=== PATIENT | female | born 1950 | race Caucasian/White ===

== ENCOUNTER 2023-08-24 06:45 | Emergency (ER) | payer MEDICARE, OTHER, SELFPAY ==
[2023-08-24 06:47] VITALS: BP 182/143; PULSE 109; RESP 16; TEMP 36.2; O2SAT 96; BMI 28.3
--- NOTE | 2023-08-24 07:15 | CRLHL7_ITS ---
For Patients: As a result of the Century Cures Act, medical imaging exams and procedure reports are released immediately into your electronic medical record. You may view this report before your referring provider. If you have questions, please contact your health care provider. Indication: Shortness of breath Technique: Chest 2 views Comparison: None Findings/Impression: Cardiovascular and mediastinum: Normal heart size with mild atherosclerotic calcification. Lungs and pleural spaces: No pleural effusion or pneumothorax. Discoid atelectasis right lung base. Bones and soft tissues: No significant findings. Dictated by Benedict Frazier MD @ 08/24/2023 7:39:43 AM (Electronically Signed)
--- NOTE | 2023-08-24 07:15 | CRLHL7_ITS ---
For Patients: As a result of the Century Cures Act, medical imaging exams and procedure reports are released immediately into your electronic medical record. You may view this report before your referring provider. If you have questions, please contact your health care provider. INDICATION: dyspnea, FB sensation TECHNIQUE: Soft tissue neck 2 view. COMPARISON: None.. FINDINGS: The airway is patent. Epiglottis is normal. Mild prominence of the retropharyngeal soft tissues which is favored to relate to degree of neck flexion. The visualized cervical spine demonstrates straightening of expected cervical lordosis and moderate spondylosis. IMPRESSION: Mild prominence of the retropharyngeal soft tissues which is favored to relate to degree of neck flexion. If there is further clinical concern consider cross-sectional imaging to further evaluate. Dictated by Calixto Herrera MD @ 08/24/2023 8:09:50 AM (Electronically Signed)
--- NOTE | 2023-08-24 07:49 | ED_ITS ---
HPI - General Adult General Chief complaint: Difficulty Swallowing Stated complaint: trouble breathing/swallowing Time Seen by Provider: 08/24/23 06:51 Source: patient and family Mode of arrival: ambulatory Limitations: no limitations History of Present Illness HPI narrative: 72-year-old female with known prior history of eosinophilic esophagitis and prior stricture with dilation this past spring presents to the emergency department with a feeling of subjective tightness in the lower throat. This is been gradually progressive over the last several days to weeks but is not nearly as severe as it was the past spring. Apparently the stricture was so bad in the spring that her actually had to do the Heimlich maneuver a couple of times on her to loosen food impactions. She does not currently feel like there is a food impaction. Her concern for coming to the emergency room is that when she lays down she feels like she cannot breathe. It feels like a mechanical type obstruction like she cannot move air in and out. When she sits up her symptoms improved markedly. She does have silent acid reflux and reports excellent compliance with her proton pump inhibitor and her famotidine. She has not missed any doses of this. There is no new trauma or injury. She does have a mild URI but no obvious productive cough. Certainly no nausea, vomiting, hemoptysis. There has been no bloody stools. She has no abdominal pain. She did not try any interventions at home prior to coming to the ED. Her is a retired family physician. She did wake him early this morning and reported her symptoms. He can confirm that she was not exhibiting any signs of visible respiratory distress. She is currently asymptomatic sitting up talking in full sentences for me. She has no history of DVT or PE denies any cardiac or exertional type symptoms. Past medical history notable for hypertension, hyperlipidemia. She is on supplemental topical estrogen. Notable for the esophageal type complaints as above. ROS is notable for the generalized and GI symptoms as above. Otherwise denies times 12 systems. Related Data Home Medications Medication Instructions Recorded Confirmed atorvastatin 10 mg tablet 10 mg PO DAILY 08/24/23 08/24/23 estradiol 0.05 mg/24 hr semiweekly 1 patch transdermal 2XW 08/24/23 08/24/23 transdermal patch famotidine 20 mg tablet 20 mg PO BID 08/24/23 08/24/23 hydralazine 25 mg tablet 25 mg PO 3XD 08/24/23 08/24/23 irbesartan 300 mg tablet 300 mg PO DAILY 08/24/23 08/24/23 omeprazole 40 mg capsule,delayed 40 mg PO DAILY 08/24/23 08/24/23 release Previous Rx's Medication Instructions Recorded amoxicillin 500 mg-potassium 1 tab PO BID #14 tabs 08/24/23 clavulanate 125 mg tablet (Augmentin) prednisone 20 mg tablet 20 mg PO BID #10 tabs 08/24/23 Allergies Allergy/AdvReac Type Severity Reaction Status Date / Time Sulfa (Sulfonamide Allergy Hives Verified 08/24/23 11:57 Antibiotics) IVP dyes Allergy Hives Uncoded 08/24/23 11:57 PFSH [facility] Medical History Health care directive on file ?Z78.9 - Other specified health status (ICD-10) Social History Smoking Status: Never smoker Do you use any of these nicotine containing products: None How often do you have a drink containing alcohol: never AUDIT-C Alcohol total score: 0 Non-prescribed substance use: denies use Exam Const: Vital Signs, click to edit/add: Vital Signs - 24 hr 08/24/23 06:47 Temperature 97.2 F L Pulse Rate [Pulse Oximeter] 109 H Respiratory Rate 16 Blood Pressure [Ri ght Upper Arm] 182/143 H Pulse Oximetry 96 Oxygen Delivery Me thod Room Air Documenting provider has reviewed patient's vital signs: yes Common normals: no apparent distress General appearance: cooperative and comfortable Other: Good historian. No visible respiratory distress. Is able to swallow her own saliva. HENMT: Common normals: normocephalic Head and scalp: normocephalic Face and sinus: normal facial exam Mouth: oral and palatal mucosa normal Throat: posterior oropharynx normal Eye: Common normals: conjunctivae normal General eye: normal appearance of both eyes Conjunctiva: conjunctiva(e) normal Neck & C-Spine: Common normals: full ROM, no lymphadenopathy and supple General: normal visual inspection Resp: Common normals: normal respiratory effort, no use of accessory muscles and clear to auscultation bilaterally Effort & inspection: able to speak in complete sentences Auscultation: clear to auscultation bilaterally Cardio: Common normals: regular rate, regular rhythm, S1 normal heart sound, S2 normal heart sound and no murmurs Rate: regular rate Rhythm: regular rhythm Heart sounds: S1 normal and S2 normal GI: Common normals: Normal to inspection, nondistended, normoactive bowel sounds present, soft to palpation, non-tender, no hepatosplenomegaly and no masses Palpation: soft and no hepatosplenomegaly Extremity: Common normals: normal to inspection, normal capillary refill and no pedal edema Psych: Activity/motor behavior: appropriate eye contact Insight: insight good Judgement: judgment good Skin: Common normals: no rashes or lesions noted General skin exam: no ra shes or lesions noted Course Course ED Course: Subjective shortness of breath, mechanical sound Ng in nature. Low risk for pulmonary embolism but I am curious with her tachycardia. Most likely she has esophageal symptoms or potentially recurrent stricture. She does not give a history consistent with a foreign body aspiration but this certainly is possible. I have recommended we start with a basic neck and chest x-ray and some basic labs to look for pulmonary embolism, infection, electrolyte abnormali ties and other basic workup as well as an EKG. She was agreeable to this. I have given a call for General surgery team. Unfortunately, we are not doing endoscopies today. The provider that is doing them tomorrow is not likely an ideal choice due to the fact that they are not typically familiar with doing dilation procedures and based on this patient's history, she is pretty likely to require dilation. Because of this, I spoke with our supervisor continuous weld pipe mill, Dr. Abdullahi. He is going to review her chart when he gets to clinic as he was driving at the time of our conversation. He is thinking he probably does need a repeat endoscopy based on the description but will get back to us. We will await the medical workup as described above. I will be handing care of this patient over to my day shift partner. She is not experiencing any signs of respiratory distress at this time. Vital Signs Vital signs: Initial Vital Signs Temperature 97.2 F L 08/24/23 06:47 Temperature Source Temporal Artery Scan 08/24/23 06:47 Pulse Rate 109 H 08/24/23 06:47 Respiratory Rate 16 08/24/23 06:47 Blood Pressure 182/143 H 08/24/23 06:47 Blood Pressure Mean 156 H 08/24/23 06:47 Blood Pressure Position Sitting 08/24/23 06:47 Pulse Oximetry 96 08/24/23 06:47 Oxygen Delivery Method Room Air 08/24/23 06:47 Vital Signs Temperature 97.2 F L 08/24/23 06:47 Pulse Rate 109 H 08/24/23 06:47 Respiratory Rate 16 08/24/23 06:47 Blood Pressure 182/143 H 08/24/23 06:47 Pulse Oximetry 96 08/24/23 06:47 Oxygen Delivery Method Room Air 08/24/23 06:47 Temperature 97.7 F 08/24/23 11:55 Pulse Rate 92 08/24/23 11:55 Respiratory Rate 18 08/24/23 11:55 Blood Pressure 172/86 H 08/24/23 11:55 Pulse Oximetry 95 08/24/23 11:55 Oxygen Delivery Method Room Air 08/24/23 11:55 Medications Administered Medications: Discontinued Medications Generic Name Dose Route Start Last Admin Trade Name Freq PRN Reason Stop Dose Admin Diphenhydramine HCl 50 mg 08/24/23 09:21 08/24/23 09:48 Diphenhydramine 50 Mg/Ml Inj IVP 08/24/23 09:22 50 mg ONCE ONE Administration Hydrocortisone Sodium Succinate 200 mg 08/24/23 09:21 08/24/23 09:49 Hydrocortisone Sod Succinate 50 Mg/Ml Inj IVP 08/24/23 09:22 200 mg ONCE ONE Administration Medical Decision Making Medical Records Medical records reviewed: Yes I reviewed the patient's medical records Lab Data Lab results reviewed: Yes I reviewed the patient's lab results Labs: Lab Results 08/24/23 08/24/23 Range/Units 06:58 08:30 WBC 15.10 H (4.50-11.00) K/uL RBC 5.01 (4.00-5.20) m/uL Hgb 15.0 (12.0-16.0) gm/dL Hct 46.6 (33.0-51.0) % MCV 93 (80-100) fL MCH 30 (26-34) pg MCHC 32 (32-36) gm/dL RDW Coeff of [place]aya 13.3 (11.5-15.5) % Plt Count 331 (140-440) K/uL Neut % (Auto) 81.3 H (42.0-72.0) % Lymph % (Auto) 11.7 L (20-44) % Hubbard % (Auto) 6.4 (0.0-11.0) % Eos % (Auto) 0.1 (0.0-7.0) % Baso % (Auto) 0.3 (0.0-3.0) % Neut # (Auto) 12.30 H (1.7-7.0) K/uL Lymph # (Auto) 1.80 (0.90-2.90) K/uL Hubbard # (Auto) 1.00 H (0.00-0.90) K/UL Eos # (Auto) 0.00 (0.00-0.50) K/uL Baso # (Auto) 0.00 (0.00-0.30) K/uL Abs Immat Gran (auto) 0.00 (0.00-0.30) K/uL Imm/Tot Granulo (auto) 0.2 % D-Dimer Quant (PE/DVT) 0.29 (0.00-0.50) ug/ml Sodium 134 L (135-149) mmol/L Potassium 4.4 (3.6-5.1) mmol/L Chloride 106 (96-114) mmol/L Carbon Dioxide 27 (20-32) mmol/L Anion Gap 1 L (7-15) mEq/L BUN 16 (7-30) mg/dL Creatinine 0.8 (0.5-1.5) mg/dL Estimated Creat Clear 42.07 Estimated GFR 78 ml/min Glucose 121 H (60-115) mg/dL Calcium 9.1 (8.4-10.6) mg/dL Troponin I 0.01 (0.01-0.04) ng/mL C-Reactive Protein 1.5 H (0.5-1.0) mg/dL SARS-CoV-2 (PCR) Negative SARS-CoV-2 (Negative) Influenza Type A (PCR) Negative PCR FLU A (Negative) Influenza Type B (PCR) Negative PCR FLU B (Negative) RSV (PCR) Negative PCR RSV (Negative) Imaging Data Chest x-ray: Attestation: I have reviewed the pertinent imaging results. My impression: Normal chest x-ray Radiologist's impression: IMPRESSION: No evidence of acute cardiopulmonary process. Neck x-ray: Attestation: I have reviewed the pertinent imaging results. My impression: No obvious radiopaque foreign body, but uncertain if any signs of soft tissue obstruction. Awaiting radiologist interpretation Discharge Plan Discharge Clinical Impression: Eosinophilic esophagitis, Thyroid fullness, Incidental lung nodule, Mild shortness of breath Patient Disposition: Home w/ Parent or Adult Condition: Improved Instructions: Esophagitis (ED) Additional Instructions: Light activity, fluids, steroid and antibiotics prescribed. You need to follow- up discussed that her doctor regarding recheck on your lung nodule and thyroid needs an ultrasound. This can be done as an outpatient. Return to ED if problems or concerns. Follow up appointment is scheduled at the [facility] [place] on [place] with a 3pm appointment time. Please arrive at 2:50pm to check in. If you have any questions or need to reschedule, please call [phone]. [facility] [place] [address] [place] [address] Activity Level: No Restrictions Discharge Diet: Regular Prescriptions: New amoxicillin-pot clavulanate [Augmentin] 500-125 mg tablet 1 tab PO BID Qty: 14 0RF prednisone 20 mg tablet 20 mg PO BID Qty: 10 0RF No Action atorvastatin 10 mg tablet 10 mg PO DAILY hydralazine 25 mg tablet 25 mg PO 3XD estradiol 0.05 mg/24 hr patch semiweekly 1 patch transdermal 2XW omeprazole 40 mg capsule,delayed release(DR/EC) 40 mg PO DAILY famotidine 20 mg tablet 20 mg PO BID irbesartan 300 mg tablet 300 mg PO DAILY Follow Up/Referrals: Shin Abdullahi MD [Staff Physician] - 7 Days (Per Dr. Abdullahi, discussed from ED 08/24/2023 0800) Cassie Venegas DO [Primary Care Provider] - Stand Alone Forms: [employer] Info Instructions
[2023-08-24 07:59] LABS: PCR FLU A Negative PCR FLU A (Negative); PCR FLU B Negative PCR FLU B (Negative); PCR RSV Negative PCR RSV (Negative)
[2023-08-24 08:22] LABS: SARS PCR* Negative SARS-CoV-2 (Negative)
[2023-08-24 08:39] VITALS: BP 163/83; PULSE 85; RESP 18; O2SAT 95
--- NOTE | 2023-08-24 09:00 | CRLHL7_ITS ---
For Patients: As a result of the Century Cures Act, medical imaging exams and procedure reports are released immediately into your electronic medical record. You may view this report before your referring provider. If you have questions, please contact your health care provider. INDICATION: Short of breath, difficulty swallowing, feels like something stuck COMPARISON: Chest and neck soft tissue radiographs from the same day TECHNIQUE: CT of the neck with contrast. Multiplanar axial, coronal, and sagittal reformats were reconstructed. Intravenous contrast: 79 mL of Isovue 370. FINDINGS: Lymph nodes: Normal. Parotid and submandibular glands: Normal. Thyroid gland: Multinodular thyroid. The right thyroid lobe is mildly enlarged. No intra mediastinal/intrathoracic extension. Tonsils: Normal. Airway: Normal. Not deviated or narrowed. Normal epiglottis. Air-fluid level in the left piriform sinus. Parapharyngeal spaces: Normal. Paranasal sinus: Normal. Soft tissues: Normal. No swelling. No foreign body. Arteries: Mild atherosclerosis. No arterial aneurysm, dissection, or thrombus. Veins: No deep vein thrombosis. Lung apices: 4 mm left upper lobe nodule. Bones: No fractures. No focal bone lesions. Normal for age. Upper esophagus: Normal. No distention with fluid, debris, or ingested material. Included intracranial contents, orbits and mastoids: Normal. IMPRESSION: 1. Very trace amount of fluid layering in the left piriform sinus. No airway or esophageal foreign body. 2. Multinodular thyroid with enlarged right thyroid lobe. Recommend ultrasound on a nonemergent basis for further characterization. 3. There is a 4 mm nodule in the left upper lobe. If the patient is low risk, no specific follow-up is recommended. If the patient is high risk for primary pulmonary malignancy, consider follow-up CT in 12 months. Please note that all CT scans at this facility use dose modulation, iterative reconstruction, and/or weight-based dosing when appropriate to reduce radiation dose to as low as reasonably achievable. Dictated by Connie Rg MD @ 08/24/2023 12:01:58 PM (Electronically Signed)
--- NOTE | 2023-08-24 09:04 | ED.GENADULT ---
HPI - General Adult General Chief complaint: Difficulty Swallowing Stated complaint: trouble breathing/swallowing Time Seen by Provider: 08/24/23 06:51 Source: patient and family Mode of arrival: ambulatory Limitations: no limitations Related Data Home Medications Medication Instructions Recorded Confirmed atorvastatin 10 mg tablet 10 mg PO DAILY 08/24/23 08/24/23 estradiol 0.05 mg/24 hr semiweekly 1 patch transdermal 2XW 08/24/23 08/24/23 transdermal patch famotidine 20 mg tablet 20 mg PO BID 08/24/23 08/24/23 hydralazine 25 mg tablet 25 mg PO 3XD 08/24/23 08/24/23 irbesartan 300 mg tablet 300 mg PO DAILY 08/24/23 08/24/23 omeprazole 40 mg capsule,delayed 40 mg PO DAILY 08/24/23 08/24/23 release Previous Rx's Medication Instructions Recorded amoxicillin 500 mg-potassium 1 tab PO BID #14 tabs 08/24/23 clavulanate 125 mg tablet (Augmentin) prednisone 20 mg tablet 20 mg PO BID #10 tabs 08/24/23 Allergies Allergy/AdvReac Type Severity Reaction Status Date / Time Sulfa (Sulfonamide Allergy Hives Verified 08/24/23 11:57 Antibiotics) IVP dyes Allergy Hives Uncoded 08/24/23 11:57 PFSH PFSH Medical History Health care directive on file ?Z78.9 - Other specified health status (ICD-10) Social History Smoking Status: Never smoker Do you use any of these nicotine containing products: None How often do you have a drink containing alcohol: never AUDIT-C Alcohol total score: 0 Non-prescribed substance use: denies use Exam Const: Vital Signs, click to edit/add: Vital Signs - 24 hr 08/24/23 06:47 08/24/23 08:39 08/24/23 10:48 Temperature 97.2 F L 99 F Pulse Rate [Pulse Oximeter] 109 H 85 88 Respiratory Rate 16 18 20 Blood Pressure [Ri ght Upper Arm] 182/143 H 163/83 H 178/92 H Pulse Oximetry 96 95 96 Oxygen Delivery Me thod Room Air Room Air 08/24/23 11:55 Temperature 97.7 F Pulse Rate [Pulse Oximeter] 92 Respiratory Rate 18 Blood Pressure [Ri ght Upper Arm] 172/86 H Pulse Oximetry 95 Oxygen Delivery Me thod Room Air Course Vital Signs Vital signs: Initial Vital Signs Temperature 97.2 F L 08/24/23 06:47 Temperature Source Temporal Artery Scan 08/24/23 06:47 Pulse Rate 109 H 08/24/23 06:47 Respiratory Rate 16 08/24/23 06:47 Blood Pressure 182/143 H 08/24/23 06:47 Blood Pressure Mean 156 H 08/24/23 06:47 Blood Pressure Position Sitting 08/24/23 06:47 Pulse Oximetry 96 08/24/23 06:47 Oxygen Delivery Method Room Air 08/24/23 06:47 Vital Signs Temperature 97.2 F L 08/24/23 06:47 Pulse Rate 109 H 08/24/23 06:47 Respiratory Rate 16 08/24/23 06:47 Blood Pressure 182/143 H 08/24/23 06:47 Pulse Oximetry 96 08/24/23 06:47 Oxygen Delivery Method Room Air 08/24/23 06:47 Temperature 97.7 F 08/24/23 11:55 Pulse Rate 92 08/24/23 11:55 Respiratory Rate 18 08/24/23 11:55 Blood Pressure 172/86 H 08/24/23 11:55 Pulse Oximetry 95 08/24/23 11:55 Oxygen Delivery Method Room Air 08/24/23 11:55 Medications Administered Medications: Discontinued Medications Generic Name Dose Route Start Last Admin Trade Name Freq PRN Reason Stop Dose Admin Diphenhydramine HCl 50 mg 08/24/23 09:21 08/24/23 09:48 Diphenhydramine 50 Mg/Ml Inj IVP 08/24/23 09:22 50 mg ONCE ONE Administration Hydrocortisone Sodium Succinate 200 mg 08/24/23 09:21 08/24/23 09:49 Hydrocortisone Sod Succinate 50 Mg/Ml Inj IVP 08/24/23 09:22 200 mg ONCE ONE Administration Medical Decision Making [facility] Narrative Medical decision making narrative: Patient is a 72-year-old female that gets episodic shortness of breath this morning last night she has had a recent upper respiratory infection, she is negative for all her viral studies, the patient does have some mild fullness on her soft tissue neck x-ray. Will get a CT scan of her neck for completeness to make sure there is no retropharyngeal abscess or other issue. Her viral studies are negative as mention her EKG shows normal sinus rhythm right atrial enlargement nonspecific ST changes really no acute changes. For the laboratories are pending. Discussed with Dr. Sanchez any wishes to see her in follow-up. Given her in a felt like esophagitis. And may need repeat EGD. Addendum 12 noon: The patient's soft tissue neck CT is pending. Her plain film showed some fullness in her retropharyngeal air which could be due to just simply angulation but given she had a positional change in breathing issue, I think it was suggs to check a CT scan if this is reassuring I think will put her on antibiotics per ENT is recommendation and steroid medicine. She got hydrocortisone ready for her pretreatment for the CT scan with contrast. Her EKG looks reassuring and her other lab studies also look reassuring in the form of a CRP that is only 1.5 troponin that is negative, her white count is elevated 15,100 but she does have a mild upper respiratory infection hemoglobin is 15 D-dimer is negative, ER profile is largely unremarkable, she is negative for the viral studies. Recommend follow-up with Dr. Olya cole as his recommendation for this he Unasyn felt like esophagitis and she may need repeat valid dilation. Treat the upper respiratory infection and breathin issue with Augmentin and the steroid. Follow-up with Dr. Sanchez will be set up. Follow up with primary care in the next few days per their discretion. Return to ED sooner problems or concerns. Lab Data Labs: Lab Results 08/24/23 08/24/23 Range/Units 06:58 08:30 WBC 15.10 H (4.50-11.00) K/uL RBC 5.01 (4.00-5.20) m/uL Hgb 15.0 (12.0-16.0) gm/dL Hct 46.6 (33.0-51.0) % MCV 93 (80-100) fL MCH 30 (26-34) pg MCHC 32 (32-36) gm/dL RDW Coeff of Sumaya 13.3 (11.5-15.5) % Plt Count 331 (140-440) K/uL Neut % (Auto) 81.3 H (42.0-72.0) % Lymph % (Auto) 11.7 L (20-44) % [place] % (Auto) 6.4 (0.0-11.0) % Eos % (Auto) 0.1 (0.0-7.0) % Baso % (Auto) 0.3 (0.0-3.0) % Neut # (Auto) 12.30 H (1.7-7.0) K/uL Lymph # (Auto) 1.80 (0.90-2.90) K/uL [place] # (Auto) 1.00 H (0.00-0.90) K/UL Eos # (Auto) 0.00 (0.00-0.50) K/uL Baso # (Auto) 0.00 (0.00-0.30) K/uL Abs Immat Gran (auto) 0.00 (0.00-0.30) K/uL Imm/Tot Granulo (auto) 0.2 % D-Dimer Quant (PE/DVT) 0.29 (0.00-0.50) ug/ml Sodium 134 L (135-149) mmol/L Potassium 4.4 (3.6-5.1) mmol/L Chloride 106 (96-114) mmol/L Carbon Dioxide 27 (20-32) mmol/L Anion Gap 1 L (7-15) mEq/L BUN 16 (7-30) mg/dL Creatinine 0.8 (0.5-1.5) mg/dL Estimated Creat Clear 42.07 Estimated GFR 78 ml/min Glucose 121 H (60-115) mg/dL Calcium 9.1 (8.4-10.6) mg/dL Troponin I 0.01 (0.01-0.04) ng/mL C-Reactive Protein 1.5 H (0.5-1.0) mg/dL SARS-CoV-2 (PCR) Negative SARS-CoV-2 (Negative) Influenza Type A (PCR) Negative PCR FLU A (Negative) Influenza Type B (PCR) Negative PCR FLU B (Negative) RSV (PCR) Negative PCR RSV (Negative) Discharge Plan Discharge Clinical Impression: Eosinophilic esophagitis, Thyroid fullness, Incidental lung nodule, Mild shortness of breath Patient Disposition: Home w/ Parent or Adult Condition: Improved Instructions: Esophagitis (ED) Additional Instructions: Light activity, fluids, steroid and antibiotics prescribed. You need to follow-up discussed that her doctor regarding recheck on your lung nodule and thyroid needs an ultrasound. This can be done as an outpatient. Return to ED if problems or concerns. Follow up appointment is scheduled at the [facility] [place] on 09/08 with a 3pm appointment time. Please arrive at 2:50pm to check in. If you have any questions or need to reschedule, please call [phone]. [facility] [place] [address] [place] [address] Activity Level: No Restrictions Discharge Diet: Regular Prescriptions: New amoxicillin-pot clavulanate [Augmentin] 500-125 mg tablet 1 tab PO BID Qty: 14 0RF prednisone 20 mg tablet 20 mg PO BID Qty: 10 0RF No Action atorvastatin 10 mg tablet 10 mg PO DAILY hydralazine 25 mg tablet 25 mg PO 3XD estradiol 0.05 mg/24 hr patch semiweekly 1 patch transdermal 2XW omeprazole 40 mg capsule,delayed release(DR/EC) 40 mg PO DAILY famotidine 20 mg tablet 20 mg PO BID irbesartan 300 mg tablet 300 mg PO DAILY Follow Up/Referrals: Shin Abdullahi MD [Staff Physician] - 7 Days (Per Dr. Abdullahi, discussed from ED 08/24/2023 0800) Cassie Venegas DO [Primary Care Provider] - Stand Alone Forms: [employer] Info Instructions
[2023-08-24 09:15] LABS: Troponin I* 0.01 ng/mL (0.01-0.04)
[2023-08-24] MEDS: diphenhydrAMINE 50 MG/ML inj IVP (09:48)
[2023-08-24] MEDS: HYDROCORTISONE SOD SUCCINATE 50 MG/ML inj 200 MG IVP (09:49)
[2023-08-24 10:32] LABS: Chloride* 106 mmol/L (96-114); Potassium* 4.4 mmol/L (3.6-5.1); Sodium* 134 mmol/L (135-149)
[2023-08-24 10:34] LABS: Basophils Percent Auto 0.3 % (0.0-3.0); Eosinophils Percent Auto 0.1 % (0.0-7.0); Hematocrit 46.6 % (33.0-51.0); Immature Granulocytes Pct Auto 0.2 %; Lymphocytes Percent Auto 11.7 % (20-44); Mean Corpuscular HGB Conc 32 gm/dL (32-36); Mean Corpuscular Hemoglobin 30 pg (26-34); Mean Corpuscular Volume 93 fL (80-100); Monocytes Percent Auto 6.4 % (0.0-11.0); Neutrophils Percent Auto 81.3 % (42.0-72.0); Platelet Count* 331 K/uL (140-440); RDW Coefficient of Variation % 13.3 % (11.5-15.5); Red Blood Count 5.01 m/uL (4.00-5.20)
[2023-08-24 10:35] LABS: Creatinine* 0.8 mg/dL (0.5-1.5); Est. Creatinine Clearance* 42.07; Estimated Glomerular Filt Rate 78 ml/min
[2023-08-24 10:36] LABS: Anion Gap 1 mEq/L (7-15); Blood Urea Nitrogen* 16 mg/dL (7-30); Calcium* 9.1 mg/dL (8.4-10.6); Carbon Dioxide* 27 mmol/L (20-32); Glucose* 121 mg/dL (60-115)
[2023-08-24 10:37] LABS: D Dimer Quantitative* 0.29 ug/ml (0.00-0.50); Slide Review Reflex No
[2023-08-24 10:39] LABS: C Reactive Protein* 1.5 mg/dL (0.5-1.0)
[2023-08-24 10:48] VITALS: BP 178/92; PULSE 88; RESP 20; TEMP 37.2; O2SAT 96
[2023-08-24 11:55] VITALS: BP 172/86; PULSE 92; RESP 18; TEMP 36.5; O2SAT 95
== END 2023-08-24 12:19 | disposition home or self-care (01) ==
PROVIDERS: Family Medicine; Emergency Provider Family Medicine; PCP Family Medicine
DX: K20.0 Eosinophilic esophagitis (principal); R91.1 Solitary pulmonary nodule
CPT/HCPCS: 36415; 70360; 70491; 71046; 80048; 84484; 85025; 85379; 86140; 87631; 93005; 96374; 96376; 99284; 99285; J1200; J1720; Q9967

== ENCOUNTER 2024-07-20 08:37 | Emergency (ER) | payer MEDICARE, OTHER, SELFPAY ==
[2024-07-20] VITALS (11 sets, daily range): BP systolic 148–161; BP diastolic 73–77; PULSE 88–105; RESP 16–20; TEMP 36.2; O2SAT 93–96; BMI 29.2
[2024-07-20 09:22] LABS: Basophils Percent Auto 0.3 % (0.0-3.0); Eosinophils Percent Auto 0.2 % (0.0-7.0); Hematocrit 42.1 % (33.0-51.0); Hemoglobin* 13.8 gm/dL (12.0-16.0); Immature Granulocytes Pct Auto 0.2 %; Lymphocytes Percent Auto 12.9 % (20-44); Mean Corpuscular HGB Conc 33 gm/dL (32-36); Mean Corpuscular Hemoglobin 30 pg (26-34); Mean Corpuscular Volume 91 fL (80-100); Monocytes Percent Auto 9.9 % (0.0-11.0); Neutrophils Percent Auto 76.5 % (42.0-72.0); Platelet Count* 274 K/uL (140-440); RDW Coefficient of Variation % 13.6 % (11.5-15.5); Red Blood Count 4.61 m/uL (4.00-5.20); White Blood Count* 11.58 K/uL (4.50-11.00)
[2024-07-20 09:28] LABS: Slide Review Reflex No
[2024-07-20 09:35] LABS: PCR FLU A Negative PCR FLU A (Negative); PCR FLU B Negative PCR FLU B (Negative); PCR RSV Negative PCR RSV (Negative); SARS PCR* Negative SARS-CoV-2 (Negative)
--- NOTE | 2024-07-20 09:38 | ED_ITS ---
HPI - General Adult General Chief complaint: Chest Pain Stated complaint: Chest pain short of breath cough, allergy concerns Time Seen by Provider: 07/20/24 09:37 History of Present Illness HPI narrative: Pt reports she ate some radish at 1700 last night. Around 1745, began to have some chest pain, lip/face /jaw discomfort /pain, dry cough. Pt had a puff of 's cortisone inhaler and took a Zyrtec around 2130. This AM, facial /jaw pain has resolved, but chest pain remains, about 8/10 pain, worse with inspiration. 73-year-old woman presenting to the emergency department with concern of chest pain that seems to have been present shortly after eating a rash yesterday evening. Initially began to feel some chest tightness and discomfort around her jaw and lips. Slight cough. Used her 's steroid inhaler and took a Zyrtec. Still with some discomfort in her jaw this morning and a lightly pleuritic chest pressure has remained. Concern primarily by spouse of potential pulmonary embolus. No difficulty swallowing. Not exactly short of breath. Related Data Home Medications ?Medication ?Instructions ?Recorded ?Confirmed atorvastatin 10 mg tablet 10 mg PO DAILY 08/24/23 08/24/23 estradiol 0.05 mg/24 hr semiweekly 1 patch transdermal 2XW 08/24/23 08/24/23 transdermal patch famotidine 20 mg tablet 20 mg PO BID 08/24/23 08/24/23 hydralazine 25 mg tablet 25 mg PO 3XD 08/24/23 08/24/23 irbesartan 300 mg tablet 300 mg PO DAILY 08/24/23 08/24/23 omeprazole 40 mg capsule,delayed 40 mg PO DAILY 08/24/23 08/24/23 release Previous Rx's ?Medication ?Instructions ?Recorded amoxicillin 500 mg-potassium 1 tab PO BID #14 tabs 08/24/23 clavulanate 125 mg tablet (Augmentin) prednisone 20 mg tablet 20 mg PO BID #10 tabs 08/24/23 prednisone 20 mg tablet 20 mg PO BID #6 tabs 07/20/24 Allergies Allergy/AdvReac Type Severity Reaction Status Date / Time Sulfa (Sulfonamide Allergy Hives Verified 08/24/23 11:57 Antibiotics) IVP dyes Allergy Hives Uncoded 08/24/23 11:57 Review of Systems Status of ROS: Reports: 6 or more systems reviewed and unremarkable except as noted in History and below [facility] Medical History Health care directive on file ?Z78.9 - Other specified health status (ICD-10) Social History Smoking Status: Never smoker Do you use any of these nicotine containing products: None How often do you have a drink containing alcohol: never AUDIT-C Alcohol total score: 0 Non-prescribed substance use: denies use Exam Narrative: Exam Narrative: Pleasant. NAD. Neck is supple. No stridor. Oropharynx unremarkable. I do not appreciate any swelling about face or lips. Lungs generally clear with clearing crepitus in bilateral bases. Slightly uncomfortable to palpation over the lower mid chest wall anteriorly. Abdomen is soft nontender. Extremities are well perfused without edema. Skin without rash. Heart in elevated rate and regular rhythm without murmur or gallop. Const: Vital Signs, click to edit/add: Vital Signs - 24 hr 07/20/24 08:45 07/20/24 08:59 07/20/24 09:00 Temperature 97.2 F L Pulse Rate 96 Pulse Rate [Pulse Oximeter] 105 H Respiratory Rate 16 Blood Pressure 148/74 H Blood Pressure [Ri ght Upper Arm] 161/73 H Pulse Oximetry 95 95 94 Oxygen Delivery Me thod Room Air 07/20/24 09:00 07/20/24 09:15 07/20/24 09:30 Temperature Pulse Rate 96 94 91 Pulse Rate [Pulse Oximeter] Respiratory Rate Blood Pressure Blood Pressure [Ri ght Upper Arm] Pulse Oximetry 95 93 94 Oxygen Delivery Me thod 07/20/24 09:34 07/20/24 09:45 07/20/24 10:00 Temperature Pulse Rate 90 89 89 Pulse Rate [Pulse Oximeter] Respiratory Rate Blood Pressure Blood Pressure [Ri ght Upper Arm] Pulse Oximetry 94 95 94 Oxygen Delivery Me thod 07/20/24 10:05 07/20/24 10:15 07/20/24 10:19 Temperature Pulse Rate 89 88 88 Pulse Rate [Pulse Oximeter] Respiratory Rate 20 Blood Pressure 154/77 H Blood Pressure [Ri ght Upper Arm] Pulse Oximetry 94 94 96 Oxygen Delivery Me thod Course Vital Signs Vital signs: Initial Vital Signs Temperature 97.2 F L 07/20/24 08:45 Temperature Source Temporal Artery Scan 07/20/24 08:45 Pulse Rate 105 H 07/20/24 08:45 Respiratory Rate 16 07/20/24 08:45 Blood Pressure 161/73 H 07/20/24 08:45 Blood Pressure Mean 102 07/20/24 08:45 Blood Pressure Position Supine 07/20/24 08:45 Pulse Oximetry 95 07/20/24 08:45 Oxygen Delivery Method Room Air 07/20/24 08:45 Vital Signs Temperature 97.2 F L 07/20/24 08:45 Pulse Rate 105 H 07/20/24 08:45 Respiratory Rate 16 07/20/24 08:45 Blood Pressure 161/73 H 07/20/24 08:45 Pulse Oximetry 95 07/20/24 08:45 Oxygen Delivery Method Room Air 07/20/24 08:45 Temperature 97.2 F L 07/20/24 08:45 Pulse Rate 88 07/20/24 10:19 Respiratory Rate 20 07/20/24 10:19 Blood Pressure 154/77 H 07/20/24 10:19 Pulse Oximetry 96 07/20/24 10:19 Oxygen Delivery Method Room Air 07/20/24 08:45 Medications Administered Medications: Discontinued Medications Generic Name Dose Route Start Last Admin Trade Name Freq PRN Reason Stop Dose Admin Methylprednisolone Sodium Succinate 80 mg 07/20/24 09:46 07/20/24 10:15 Methylprednisolone Sod Succ 62.5 Mg/Ml (125) IVP 07/20/24 09:47 80 mg ONCE ONE Administration Medical Decision Making MDM Narrative Medical decision making narrative: This certainly could have been allergic reaction or onset of some viral costochondritis. Maybe some residual inflammation from apparent allergic reaction. Some component of anxiety? I doubt this is a cardiogenic pain. Pneumothorax or pulmonary embolus I suppose is in differential but I think un likely. Would screen with labs for the latter. Check also for COVID. Mildly elevated white count. Unsure if this is infectious or inflammatory. I think the crepitus that I was hearing that was clearing was more related to some atelectasis of the lung secondary to poor pulmonary expansion due to discomfort Labs are reassuring. Normal D-dimer. Chest discomfort likely inflammatory or possibly residual allergic. Discussed potential benefit of Solu-Medrol which she would like to have. This was given. Stable to improved over time in the emergency department. No further events. See patient discharge plan for further discussion Medical Records Medical records reviewed: Yes I reviewed the patient's medical records Lab Data Lab results reviewed: Yes I reviewed the patient's lab results Labs: Lab Results 07/20/24 07/20/24 07/20/24 Range/Units 08:53 09:15 09:16 WBC 11.58 H (4.50-11.00) K/uL RBC 4.61 (4.00-5.20) m/uL Hgb 13.8 (12.0-16.0) gm/dL Hct 42.1 (33.0-51.0) % MCV 91 (80-100) fL MCH 30 (26-34) pg MCHC 33 (32-36) gm/dL RDW Coeff of [place] 13.6 (11.5-15.5) % Plt Count 274 (140-440) K/uL Neut % (Auto) 76.5 H (42.0-72.0) % Lymph % (Auto) 12.9 L (20-44) % [place] % (Auto) 9.9 (0.0-11.0) % Eos % (Auto) 0.2 (0.0-7.0) % Baso % (Auto) 0.3 (0.0-3.0) % Neut # (Auto) 8.90 H (1.7-7.0) K/uL Lymph # (Auto) 1.50 (0.90-2.90) K/uL [place] # (Auto) 1.10 H (0.00-0.90) K/UL Eos # (Auto) 0.00 (0.00-0.50) K/uL Baso # (Auto) 0.00 (0.00-0.30) K/uL Abs Immat Gran (auto) 0.00 (0.00-0.30) K/uL Imm/Tot Granulo (auto) 0.2 % D-Dimer Quant (PE/DVT) 0.30 (0.00-0.50) ug/ml Sodium 135 (135-149) mmol/L Potassium 3.6 (3.6-5.1) mmol/L Chloride 103 (96-114) mmol/L Carbon Dioxide 24 (20-32) mmol/L Anion Gap 8 (7-15) mEq/L BUN 18 (7-30) mg/dL Creatinine 0.8 (0.5-1.5) mg/dL Estimated Creat Clear 41.45 Estimated GFR 78 ml/min Glucose 165 H (60-115) mg/dL Calcium 8.8 (8.4-10.6) mg/dL SARS-CoV-2 (PCR) Negative SARS-CoV-2 (Negative) Influenza Type A (PCR) Negative PCR FLU A (Negative) Influenza Type B (PCR) Negative PCR FLU B (Negative) RSV (PCR) Negative PCR RSV (Negative) Lab Acknowledgement POC Troponin I 0.00 L (0.01-0.04) ng/ml 07/20/24 Range/Units 10:09 WBC (4.50-11.00) K/uL RBC (4.00-5.20) m/uL Hgb (12.0-16.0) gm/dL Hct (33.0-51.0) % MCV (80-100) fL MCH (26-34) pg MCHC (32-36) gm/dL RDW Coeff of [place] (11.5-15.5) % Plt Count (140-440) K/uL Neut % (Auto) (42.0-72.0) % Lymph % (Auto) (20-44) % [place] % (Auto) (0.0-11.0) % Eos % (Auto) (0.0-7.0) % Baso % (Auto) (0.0-3.0) % Neut # (Auto) (1.7-7.0) K/uL Lymph # (Auto) (0.90-2.90) K/uL [place] # (Auto) (0.00-0.90) K/UL Eos # (Auto) (0.00-0.50) K/uL Baso # (Auto) (0.00-0.30) K/uL Abs Immat Gran (auto) (0.00-0.30) K/uL Imm/Tot Granulo (auto) % D-Dimer Quant (PE/DVT) (0.00-0.50) ug/ml Sodium (135-149) mmol/L Potassium (3.6-5.1) mmol/L Chloride (96-114) mmol/L Carbon Dioxide (20-32) mmol/L Anion Gap (7-15) mEq/L BUN (7-30) mg/dL Creatinine (0.5-1.5) mg/dL Estimated Creat Clear Estimated GFR ml/min Glucose (60-115) mg/dL Calcium (8.4-10.6) mg/dL SARS-CoV-2 (PCR) (Negative) Influenza Type A (PCR) (Negative) Influenza Type B (PCR) (Negative) RSV (PCR) (Negative) Lab Acknowledgement Test Added POC Troponin I (0.01-0.04) ng/ml ECG Data Attestation: I personally reviewed and interpreted this ECG as follows: (Normal sinus rhythm rate of 97. Ischemic no ischemic changes) Discharge Plan Discharge Clinical Impression: Atypical chest pain, Allergic reaction Patient Disposition: Home w/ Parent or Adult Condition: Stable Additional Instructions: I am not sure what exactly has occurred here with you today. You do seem generally well. Labs are reassuring. Watch for fever, increasing and persistent shortness of breath, marked increase in chest pain as reasons to return. I am calling in 3 days of prednisone. Depending on how you are feeling tomorrow you might start it. For breakthrough rash or itch could take diphenhydramine. Prescriptions: New prednisone 20 mg tablet 20 mg PO BID Qty: 6 1RF No Action atorvastatin 10 mg tablet 10 mg PO DAILY hydralazine 25 mg tablet 25 mg PO 3XD estradiol 0.05 mg/24 hr patch semiweekly 1 patch transdermal 2XW omeprazole 40 mg capsule,delayed release(DR/EC) 40 mg PO DAILY famotidine 20 mg tablet 20 mg PO BID irbesartan 300 mg tablet 300 mg PO DAILY amoxicillin-pot clavulanate [Augmentin] 500-125 mg tablet 1 tab PO BID Qty: 14 0RF prednisone 20 mg tablet 20 mg PO BID Qty: 10 0RF Follow Up/Referrals: Cassie Venegas DO [Primary Care Provider] - Stand Alone Forms: [employer] Info Instructions
[2024-07-20 09:42] LABS: Chloride* 103 mmol/L (96-114); Potassium* 3.6 mmol/L (3.6-5.1); Sodium* 135 mmol/L (135-149)
[2024-07-20 09:45] LABS: Anion Gap 8 mEq/L (7-15); Blood Urea Nitrogen* 18 mg/dL (7-30); Carbon Dioxide* 24 mmol/L (20-32); Creatinine* 0.8 mg/dL (0.5-1.5); Est. Creatinine Clearance* 41.45; Estimated Glomerular Filt Rate 78 ml/min
[2024-07-20 09:46] LABS: Calcium* 8.8 mg/dL (8.4-10.6); Glucose* 165 mg/dL (60-115)
[2024-07-20] MEDS: METHYLPREDNISOLONE SOD SUCC 62.5 MG/ML (125) 80 MG IVP (10:15)
== END 2024-07-20 11:04 | disposition home or self-care (01) ==
PROVIDERS: Emergency Provider Family Medicine; PCP Family Medicine
DX: R07.89 Other chest pain (principal); T78.49XA Other allergy, initial encounter
CPT/HCPCS: 36415; 80048; 84484; 85025; 85379; 87631; 93005; 94761; 96374; 99284; J2919